=== PATIENT | male | born 1930 | race Caucasian/White ===

== ENCOUNTER 2018-03-28 11:40 | Inpatient (IN) ==
[2018-03-28] MEDS ORDERED: NS 1,000 ML IV ONE ×2 (11:52→12:44)
--- NOTE | 2018-03-28 12:14 | Diag Imaging Result Doc PS360 ---
CHEST-PORTABLE - 03/28/2018 INDICATION: stroke like symptoms COMPARISON: 07/25/2016 FINDINGS: There is slight accentuation of the ill-defined interstitial infiltrates or opacities in the lung bases bilaterally. This is worse on the right than the left side. Heart size is top normal. No pneumothorax or pleural effusion. There is COPD. IMPRESSION: Slight worsening in nonspecific increased markings in the lung bases, compatible with bronchitis, edema or fibrosis. Electronically signed by Bert Martinez 03/28/2018 12:12 PM
--- NOTE | 2018-03-28 12:22 | EKG Report ---
Test Performed on : 03/28/2018 11:46:51 AM Test Reason : Stroke like symptoms Blood Pressure : / mmHG Vent. Rate : 089 BPM Atrial Rate : 089 BPM P-R Int : 240 ms QRS Dur : 144 ms QT Int : 372 ms P-R-T Axes : 069 110 001 degrees QTc Int : 452 ms Sinus rhythm. with 1st degree AV block. Right bundle branch block T wave abnormality, consider inferior ischemia Abnormal ECG When compared with ECG of 21-AUG-2017 09:11, premature supraventricular complexes. are no longer present Vent. rate has increased BY 31 BPM Right bundle branch block has replaced Incomplete right bundle branch block Unconfirmed Result
--- NOTE | 2018-03-28 12:24 | Diag Imaging Result Doc PS360 ---
EXAM: CT HEAD W/O CONTRAST 03/28/2018 HISTORY: stroke like symptoms TECHNIQUE: This exam was performed using automated exposure control, adjustment of mA or kV according to patient size, and/or use of iterative reconstruction technique. COMMENT: There are calcifications in the left vertebral and both internal carotid arteries. There is moderate generalized cerebral atrophy. There has been previous craniotomy bilaterally in the frontal and parietal bones. No previous studies are available for comparison. Bilateral subdural fluid collections are present. These are fairly dense compared to CSF measuring over 20 Hounsfield units bilaterally. In addition there are some foci of hyperdensity as seen on image 39 on the left, adjacent to the temporal lobe on the left on image 16 and the frontal lobe on image 21 on the left which may indicate acute bleeding. The visualized paranasal sinuses are clear. There is no evidence of mass effect or hydrocephalus. IMPRESSION: Bilateral chronic subdural hematomata with some evidence of active or recent bleeding on the left. The findings were discussed with Jorge Alberto Willingham MD at 03/28/2018 12:21 PM. Electronically signed by Zurdo Peter 03/28/2018 12:21 PM
[2018-03-28 12:40] LABS: BASO# 0.02 X1000 (0.0-0.2); BASO% 0.2 % (0.0-0.8); HEMATOCRIT 42.3 % (42.0-52.0); HEMOGLOBIN 13.8 g/dL (14.0-18.0); IMM GRAN# 0.02 X1000 (0.0-0.04); IMM GRAN% 0.2 % (0.0-0.5); LYMPH% 7.8 % (20.5-51.1); MCH 32.1 PG (27-31); MCHC 32.6 g/dL (33-37); MCV 98.4 FL (81-99); MONO# 1.15 X1000 (0.11-0.59); MONO% 9.9 % (1.7-9.3); MPV 9.3 FL (7.4-10.4); NEUT# 9.51 X1000 (1.4-6.5); NEUT% 81.9 % (42.2-75.2); PLT 234 X1000 (130-400); RDW 13.4 % (11.5-14.5)
[2018-03-28 13:08] LABS: INR 1.03; PROTIME 14.3 Seconds (11.0-16.0)
[2018-03-28 13:09] LABS: AGAP 13; ALB/GLOB RATIO 1.4; ALBUMIN 4.5 g/dL (3.5-5.0); ALKALINE PHOSPHATASE 94 U/L (32-122); BUN 22 mg/dL (8-22); CHLORIDE 105 mmol/L (98-107); COSMO 293; ESTIMATED GFR > 60; GLUCOSE 157 mg/dL (70-104); GOT 28 U/L (10-34); GPT 25 U/L (10-44); PTT 27.8 Seconds (22.3-41.8); SODIUM 144 mmol/L (136-145); TCO2 26 mmol/L (25-35); TOTAL BILIRUBIN 1.29 mg/dL (0.20-1.00); TOTAL PROTEIN 7.7 g/dL (6.3-8.3)
--- NOTE | 2018-03-28 13:45 | PROVIDER DOCUMENTATION ---
This chart was entered by Merari Coy Scribe, acting as scribe for Jorge Alberto Willingham MD. HPI-Neurological Disorder - General Chief Complaint: Altered Mental Status Stated Complaint: ams Time Seen by Provider: 03/28/18 11:43 Source: patient, EMS (first response) Unable to obtain history due to:: altered Allergies/Adverse Reactions: Patient Allergies Allergy/AdvReac Type Severity Reaction Status Date / Time No Known Allergies Allergy Verified 05/04/15 10:00 Home Medications: Home Medication List Medication Instructions Recorded Confirmed Last Taken Type Albuterol [Albuterol Neb] 2.5 mg INH Q4H PRN PRN 08/21/17 08/21/17 08/16/17 09: 00 History Docusate Sodium [Colace] 100 mg PO BID #30 capsule 08/23/17 Unknown Rx Hydrocodone/Acetaminophen [[place] 1 each PO Q6H PRN PRN #12 tablet 08/23/17 Unknown Rx 7.5-325 Tablet] Ondansetron HCl [Zofran] 4 mg PO Q6H PRN PRN #5 tablet 08/23/17 Unknown Rx - History of Present Illness-Neuro Nature of Presenting Problem: 87 yowm presents to the ed via ems (first response) with cc AMS. pt was found this am unresponsive by family and 911 was called. pt on exam is still confused and is A/Ox2 but can follow simple commands. pt easily falls asleep without stimulation but can be woke with voice. Severity: reports: moderate Onset/Duration: reports: unsure Timing: reports: still present Context: reports: found unresponsive by family, head injury (abrasion to rt lateral brow) Character of Altered Mental Status: reports: disoriented, confused, unresponsive Any recent trauma/injury?: reports: other (unsure pt speaks of falling from bed but unsure when) Character of Deficits: reports: new weakness New weakness or altered sensation location:: reports: LLE Cognitive Baseline: alert but confused Gait Baseline: other (unsure) Associated Symptoms: reports: confusion, loss of consciousness, sleepy. denies : headache, slurred speech, vomiting, vision changes Review of Systems - Adult - REVIEW OF SYSTEMS - ADULT ROS:: unobtainable per condition Constitutional: denies: chills, fever Eyes: reports: no symptoms reported Ears, Nose, Mouth & Throat: reports: no symptoms reported Cardiovascular: denies: chest pain, palpitations Respiratory: denies: shortness of breath, wheezing Gastrointestinal: reports: poor appetite. denies: abdominal pain, diarrhea, nausea, vomiting Genitourinary: reports: no symptoms reported Musculoskeletal: reports: no symptoms reported Integumentary: reports: no symptoms reported Neurological: reports: see HPI, tremors. denies: ataxia, dizziness/vertigo, headache/migraines, slurred speech Psychiatric: reports: no symptoms reported Endocrine: reports: no symptoms reported Hematologic/Lymphatic: reports: no symptoms reported Allergic/Immunologic: reports: no symptoms reported All Other Systems: Reviewed and Negative Past History - Adult - PAST MEDICAL HISTORY-ADULT Review of Records: reports: Old Records Reviewed, Nursing Assessment Review, Medications Reviewed, Social history reviewed & non-contributory. Major Childhood Illnesses: reports: denies history Cardiovascular: reports: HTN Respiratory: reports: denies history Gastrointestinal: reports: GERD Genitourinary: reports: denies history Musculoskeletal: reports: denies history Neurological: reports: CVA Endocrine/Immune: reports: denies history Other Conditions: reports: denies history - IMMUNIZATION STATUS Childhood Immunizations: See Nurse Assessment Flu Vaccine: See Nurse Assessment - FAMILY HISTORY Family History: reviewed, not pertinent - SOCIAL HISTORY Living Situation: family Physical Exam- Neurological - Physical Exam-Neuro Initial Vital Signs Reviewed: Yes General Appearance: no apparent distress, lethargic, slow to respond Eye Exam: bilateral eye: normal inspection, PERRL HENMT: negative: moist mucous membranes Head Injury: no evidence of injury, other (old scars in head from past sx) Neck: normal inspection Respiratory: chest non-tender, rhonchi (bilateral) Cardiovascular: normal peripheral pulses, regular rate, rhythm Abdominal Exam: normal bowel sounds, non tender, soft Lymphatic: no adenopathy Motor/Sensory: pronator drift (L) (LLE), sensory deficit (1 off for extention) Neurologic: other (flattening of left nasal fold). negative: aphasia Integumentary: warm/dry, abrasion(s) (rt lateral brow), pallor. negative: normal turgor Psych/Mental Status: other (A/Ox2 palce and person). negative: oriented x 3 - Glascow Coma Scale Best Eye Response: (3) open to voice Best Verbal Response: (4) confused conversation Best Motor Response: (6) obeys commands Total Glascow Score: 13 Progress - PLAN OF CARE/RESULTS Progress/Plan/Lab Results: Vital Signs - 8 hr 03/28/18 13:01 Pulse Rate 79 Respiratory Rate 16 Blood Pressure 150/80 O2 Sat by Pulse Oximetry 98 Laboratory Results - last 24 hr 03/28/18 03/28/18 03/28/18 12:21 12:21 12:21 WBC 11.60 H RBC 4.30 L Hgb 13.8 L Hct 42.3 MCV 98.4 MCH 32.1 H MCHC 32.6 L RDW Std Deviation 13.4 Plt Count 234 MPV 9.3 Immature Gran % (Auto) 0.2 Neut % (Auto) 81.9 H Lymph % (Auto) 7.8 L Blackford % (Auto) 9.9 H Eos % (Auto) 0.0 Baso % (Auto) 0.2 Immature Gran # (Auto) 0.02 Neut # (Auto) 9.51 H Lymph # (Auto) 0.90 L Blackford # (Auto) 1.15 H Eos # (Auto) 0.00 Baso # (Auto) 0.02 PT 14.3 INR 1.03 PTT (Actin FS) 27.8 Sodium 144 Potassium 4.0 Chloride 105 Carbon Dioxide 26 Anion Gap 13 BUN 22 Creatinine 1.0 Estimated GFR/1.73 m2 > 60 BUN/Creatinine Ratio 22 Glucose 157 H POC Glucose Calculated Osmolality 293 Calcium 10.0 Total Bilirubin 1.29 H AST 28 ALT 25 Alkaline Phosphatase 94 Troponin T Total Protein 7.7 Albumin 4.5 Globulin 3.2 Albumin/Globulin Ratio 1.4 03/28/18 03/28/18 12:21 12:46 WBC RBC Hgb Hct MCV MCH MCHC RDW Std Deviation Plt Count MPV Immature Gran % (Auto) Neut % (Auto) Lymph % (Auto) Blackford % (Auto) Eos % (Auto) Baso % (Auto) Immature Gran # (Auto) Neut # (Auto) Lymph # (Auto) Blackford # (Auto) Eos # (Auto) Baso # (Auto) PT INR PTT (Actin FS) Sodium Potassium Chloride Carbon Dioxide Anion Gap BUN Creatinine Estimated GFR/1.73 m2 BUN/Creatinine Ratio Glucose POC Glucose 140 H Calculated Osmolality Calcium Total Bilirubin AST ALT Alkaline Phosphatase Troponin T < 0.010 Total Protein Albumin Globulin Albumin/Globulin Ratio Orders Category Date Time Status Cardiac Monitoring DIRECTED Care 03/28/18 11:51 Active Finger Stick Blood Sugar (ED) DIRECTED Care 03/28/18 11:51 Active Oxygen Therapy- ED Nursing DIRECTED Care 03/28/18 11:51 Active Saline Loc NOW Care 03/28/18 11:51 Active CHEST-PORTABLE [RAD] Stat Exams 03/28/18 11:[address] HEAD W/O CONTRAST [CT] Stat Exams 03/28/18 11:51 Completed CBC WITH ELECTRONIC DIFF [HEME] Stat Lab 03/28/18 12:21 Completed COMPREHENSIVE METABOLIC PANEL [CHEM] Stat Lab 03/28/18 12:21 Completed PROTIME WITH INR [COAG] Stat Lab 03/28/18 12:21 Completed PTT [COAG] Stat Lab 03/28/18 12:21 Completed TROPONIN T Stat Lab 03/28/18 12:21 Completed URINALYSIS W/POSS RFLX CULT [URINALYSIS] Stat Lab 03/28/18 11:51 Uncollected 0.9% Sodium Chloride Inj [Ns] 1,000 ml Med 03/28/18 12:44 Active IV 75 mls/hr 0.9% Sodium Chloride Inj [Ns] 1,000 ml Med 03/28/18 11:52 Discontinued IV 999 mls/hr EKG [EKG] Stat Ther 03/28/18 11:51 Draft TPA is contraindicated due to being a possible wake up stroke. pt was found by family this am unresponsive and called 911. pt became awake with ems and is A/O x2 lethargic and easily goes back to sleep if not stimulated Result Diagrams: 03/28/18 12:21 03/28/18 12:21 - REASSESSMENT Reassessment #1 Time Reassessed: 12:19 (dr willingham at bedside) Status: unchanged Reassessment Comment: family at bedside Reassessment #2 Time Reassessed: 12:43 Status: unchanged (Family at bedside (two sons) who say patient is DNR, and would not want to have brain surgery to remove SDH if bleeding got worse. In that case, we will not transfer to [facility] and plan to admit here.) Reassessment #3 Time Reassessed: 13:28 Status: unchanged (Given IVF only. Patient is somnolent, rouses to voice/ stimulation) - EKG 1 Time of EKG reading by physician:: 11:55 EKG Read and Signed by:: Jorge Alberto Willingham EKG Interpretation (*Must complete 3 of following elements*): Abnormal Rate: 89 Rhythm: sinus rhythm with 1st degree AV block [place]: normal QRS: RBB ND Interval: normal Comments: T wave abnormality, consider inferior ischemia - XRAY 1 XRAY: Bilateral XRAY Study: Chest (CHEST-PORTABLE - 03/28/2018 INDICATION: stroke like symptoms COMPARISON: 07/25/2016 FINDINGS: There is slight accentuation of the ill-defined interstitial infiltrates or opacities in the lung bases bilaterally. This is worse on the right than the left side. Heart size is top normal. No pneumothorax or pleural effusion. There is COPD. IMPRESSION: Slight worsening in nonspecific increased markings in the lung bases, compatible with bronchitis, edema or fibrosis. Electronically signed by Bert Martinez 03/28/2018 12:12 PM 03/28/18 1212 Interpreting Physician: Bert Martinez MD Dictated Date/Time: 03/28/18 1210 cc: Jorge Alberto Willingham MD;) - CT/MRI 1 CT Study: Head (EXAM: CT HEAD W/O CONTRAST 03/28/2018 HISTORY: stroke like symptoms TECHNIQUE: This exam was performed using automated exposure control, adjustment of mA or kV according to patient size, and/or use of iterative reconstruction technique. COMMENT: There are calcifications in the left vertebral and both internal carotid arteries. There is moderate generalized cerebral atrophy. There has been previous craniotomy bilaterally in the frontal and parietal bones. No previous studies are available for comparison. Bilateral subdural fluid collections are present. These are fairly dense compared to CSF measuring over 20 Hounsfield units bilaterally. In addition there are some foci of hyperdensity as seen on image 39 on the left, adjacent to the temporal lobe on the left on image 16 and the frontal lobe on image 21 on the left which may indicate acute bleeding. The visualized paranasal sinuses are clear. There is no evidence of mass effect or hydrocephalus. IMPRESSION: Bilateral chronic subdural hematomata with some evidence of active or recent bleeding on the left. The findings were discussed with Jorge Alberto Willingham MD at 03/28/2018 12:21 PM. Electronically signed by Zurdo Peter 03/28/2018 12:21 PM 03/28/18 1221 Interpreting Physician: Zurdo Peter MD Dictated Date/Time: 1216 cc: Jorge Alberto Willingham MD;) - CONSULTS/PCP/HOSPITALIST Notification #1 *Consult/PCP/Hospitalist*: spoke with radiologist Time Discussed: 12:21 Reason/Comments: head ct Consult Disposition: other (phone consult) #2 Consult: JOVANNY Farley, paged at 1325 Time Discussed: 13:44 (Admit to [facility]) Consult Disposition: Will see in ED Departure - Departure Date of Disposition Decision: 03/28/18 Time of Disposition Decision: 13:27 DIAGNOSIS: Subdural hematoma, post-traumatic Qualifiers: Encounter type: initial encounter Loss of consciousness presence/duration: with LOC of unspecified duration Qualified Code(s): S06.5X9A - Traumatic subdural hemorrhage with loss of consciousness of unspecified duration, initial encounter Altered mental status, unspecified Qualifiers: Altered mental status type: somnolence Qualified Code(s): R40.0 - Somnolence Fall as cause of accidental injury at home as place of occurrence Qualifiers: Encounter type: initial encounter Qualified Code(s): W19.XXXA - Unspecified fall, initial encounter; Y92.009 - Unspecified place in unspecified non- institutional (private) residence as the place of occurrence of the external cause Abrasion of right eyebrow Qualifiers: Encounter type: initial encounter Qualified Code(s): S00.211A - Abrasion of right eyelid and periocular area, initial encounter Disposition: ADMITTED INPATIENT 09 Certified Medical Emergency: Emergent Condition: Fair Referrals and Follow-Ups: Henry Jacob MD [Primary Care Provider] - - Critical Care Note This patient required my direct & personal management of CC.: Yes Total Time (mins): 39 Critical Care Statement: This patient required my direct personal management to treat or rule out processes, the absence of which, could potentiallly result in sudden, clinically significant life or limb threatening deterioration. Attestation - Physician/ CONCEPCIÓN Attestation Patient care was provided by Advanced Practice Provider:: No The physician spent face to face time with patient:: Yes Advanced Practice Provider documentation review:: Supervising physician onsite and consulted in the evaluation and care of this patient. The physician did have a face to face encounter with the patient. - NIH Stroke Scale NIH Type: Initial Evaluation Level of Consciousness: 1-Drowsy, but arousable with minimal stimulation LOC Questions (ask month and age): 1-Answers One Correctly LOC Commands (ask to open & close eyes;make a fist, let go): 0-Obeys Both Correctly Best Gaze (horizontal eye movement): 0-Normal Visual (use finger movement, counting or visual threat): 0-No Visual Loss Facial Palsy (show teeth or raise eyebrows & close eyes tght: 1-Minor Paralysis Motor Function-left arm: 0-Normal Motor Function-right arm: 0-Normal Motor Function-left le-Drift Motor Function-right le-Normal Limb Ataxia(yuhzap-alsi-wipomh, or heel to olsen): 0-No Ataxia Sensory(pin prick to face,arms,trunk,legs-compare side/side): 0-No Ataxia Best Language(name item/read sentence.Ex-Down to Earth): 0-No Aphasia Dysarthria(Pt read words or say words Ex.Mama,Tip-Top,Thanks: 0-Normal Articulation Extinction and Inattention: 1-Partial Neglect NIH Total Score: 4 Modified Bertrand Score Criteria: 4-moderately severe disability Stroke tPA Guidelines - Inclusion Criteria for IV tPA 18 years old or older: Yes Ischemic stroke with measurable deficit: No Onset <3 hours ago *OR* 3-4.5 hours ago: No - Exclusion Criteria for IV tPA Evidence of intracranial hemorrhage on CT: Yes This chart was documented by the indicated scribe, (Merari oCy Scribe) and accurately reflects the services I performed and decisions made by , Jorge Alberto Willingham MD, as attested by the provider's signature.
[2018-03-28] MEDS ORDERED: TYLENOL PO PRN (14:32)
[2018-03-28] MEDS ORDERED: ZOFRAN IV PRN (14:32)
[2018-03-28 16:05] LABS: URINE SOURCE CLEAN CATCH
[2018-03-28 16:26] LABS: BILIRUBIN URINE NEGATIVE (NEGATIVE); BLOOD URINE MODERATE (NEGATIVE); COLOR YELLOW; GLUCOSE URINE NEGATIVE (NEGATIVE); KETONE URINE 10 mg/dL (NEGATIVE); LEUKOCYTES URINE NEGATIVE (NEGATIVE); NITRITE URINE NEGATIVE (NEGATIVE); PH URINE 6.5; PROTEIN URINE 50 mg/dL (NEGATIVE); SP GRAVITY URINE 1.025; TURBIDITY URINE CLEAR (CLEAR); UR EPITHELIAL CELLS <10 /HPF (<10); URINE BACTERIA NEGATIVE /HPF; URINE RBC TNTC /HPF (<10); URINE WBC <10 /HPF (<10); UROBILINOGEN URINE NORMAL (NORMAL)
[2018-03-28] MEDS ORDERED: ALBUTEROL NEB INH PRN (16:33)
--- NOTE | 2018-03-28 17:42 | HISTORY AND PHYSICAL ---
PRIMARY CARE PROVIDER: Dr. Henry Jacob out of [place]. He also used to Dr. Juarez but does not see him anymore. CHIEF COMPLAINT: Fall with altered mentation. HISTORY OF PRESENT ILLNESS: Mr. Alonso Overton is an 87-year-old male with a medical history of having bilateral subdural hematomas around 8 years ago. He had craniotomy or parisa holes on both sides and had a complete recovery neurologically from that. Since September 2017, his and this has increased his depression. He has gotten worse with his balance and more significant tremors. Apparently, he had more slur in his speech yesterday and the fall was either last night or this morning. He lives at home alone. He does have a grandson that lives upstairs but is not there frequently and his son came to check on him at 9:30 this morning. He was sitting on the side of the bed but he was not getting up and continued to have slurred words and above the right eyebrow was an abrasion, so they brought him here. Head CT reveals that he has evidence of active or recent bleeding on the left despite having an abrasion on the right. The family wishes to stay here as the patient has adamantly told his family he wants to be a do not resuscitate level 1, and so we will follow his wishes, we will admit to the medical floor. He is now following all commands, believe he was a little bit weaker on his left leg, but now strength in all extremities is equal. Speech is a little bit more clear according to the family. He is oriented to his name only. PAST MEDICAL HISTORY: 1. BPH. 2. Tinea cruris. 3. Mild cognitive impairment. 4. Eight years ago bilateral subdural hematomas with craniotomy versus parisa holes. 5. Depression. 6. Chronic dry eyes. 7. 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 SURGICAL HISTORY: 1. Bilateral subdural hematoma evacuations either by parisa holes or craniotomy, he still has indentions bilaterally on the top of his head. 2. Inguinal hernia repair on the right and on the left. SOCIAL HISTORY: Currently living in [place], he is since September 2017, he has 3 adult children. He denies tobacco, alcohol, or illicit drug use. He also has a PhD in psychology. FAMILY HISTORY: Both of his parents from pneumonia complications and his father had a stroke. ALLERGIES: No known drug allergies. HOME MEDICATIONS: He only has albuterol listed. REVIEW OF SYSTEMS: A 14-point review of systems was completed and all are negative except as mentioned above and in HPI. He states he has no pain at all right now. He does complain of some numbness in his feet. PHYSICAL EXAMINATION: VITAL SIGNS: Temperature not recorded. Heart rate 73. Respiratory rate 12. Blood pressure 148/77. O2 saturation 96% on room air. GENERAL: Mr. Alonso Overton is an 87-year-old male. He is in no acute distress. He is able to answer some questions appropriately. He is still mildly confused with a mild dysarthria. HEENT: Atraumatic. It looks like there might be a mild, slight right facial droop. Pupils are equal and reactive. Extraocular movements were intact. Mucous membranes are dry. NECK: Trachea midline. CARDIOVASCULAR: S1, S2, regular rate and rhythm. No rubs, gallops, or murmurs. No lower extremity edema. +2 dorsalis and radial pulses. Negative for JVD or carotid bruits. PULMONARY: Clear to auscultation with bilateral breath sounds. No accessory muscle use or work of breathing noted. GASTROINTESTINAL: Soft, nontender, nondistended. Positive bowel sounds x4. EXTREMITIES: Moves all extremities equally with full range of motion. NEUROLOGICAL: A and O to name, confused with place and year. Decreased sensory in the feet. Follows all commands. SKIN: Warm, dry, and intact except for small abrasion over the right eyebrow. LABORATORY DATA: White blood cells 11,000, hemoglobin 13, hematocrit 42, platelet count 234. INR 1.03. PTT 27.8. Sodium 144, potassium 4, BUN 22, creatinine 1, glucose 157, calcium 10, bilirubin 1.29, AST 28, ALT 25. Troponin less than 0.01. Albumin 4.5. Urinalysis: 50 protein, 10 ketones, moderate blood, too numerous to count red blood cells. IMAGING: Chest x-ray: Bilateral lung bases could have bronchitis, edema, or fibrosis, but he is not showing any signs. Head CT shows bilateral chronic subdural hematoma with some evidence of active or recent bleeding on the left. EKG: Sinus rhythm with a first-degree heart block, heart rate 89, QTC 452. ASSESSMENT AND PLAN: 1. Fall with new left subdural hematoma that is small. He seems to already be returning to his baseline. He is a little bit mildly confused. He has been having more tremors and balance problems. He denies any other symptoms such as dizziness or lightheadedness. He is a do not resuscitate and does not wish to have any type of surgical procedure, so they are okay with staying here at [facility]. He is currently stable and will transfer to the medical floor. 2. 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 3. Possible bibasilar pneumonia. White count is up a little bit. There is no lactate. We will go ahead and do Levaquin for that. No respiratory complaints at all. 4. Deep venous thrombosis prophylaxis. Dictated by JOVANNY Varghese for Uriel Donaldson MD Addendum: Patient seen and examined by myself. Agree with JOVANNY note. It reflects my assessment and plan. Patient is being admitted to hospital for a subdural hematoma secondary to fall. It is unfortunately not the first time this patient has this problem. Will admit patient in the hospital considering patient is DNR and if he get worse and requires further surgical care he was very clear he will not get it. We also found out he has a bibasilar pneumonia that will treat with Levaquin. Will monitor patient closely. cc: JOVANNY Varghese MD [facility]
[2018-03-28] MEDS: LEVAQUIN 500 MG/D5W 500 MG/100 ML IVPB IV SCH (18:56)
[2018-03-29 07:18] LABS: BASO# 0.04 X1000 (0.0-0.2); BASO% 0.4 % (0.0-0.8); EOS# 0.28 X1000 (0.0-0.7); HEMATOCRIT 37.9 % (42.0-52.0); HEMOGLOBIN 12.2 g/dL (14.0-18.0); IMM GRAN# 0.02 X1000 (0.0-0.04); IMM GRAN% 0.2 % (0.0-0.5); LYMPH# 1.96 X1000 (1.2-3.4); LYMPH% 21.1 % (20.5-51.1); MCH 32.1 PG (27-31); MCHC 32.2 g/dL (33-37); MCV 99.7 FL (81-99); MONO# 1.37 X1000 (0.11-0.59); MONO% 14.7 % (1.7-9.3); MPV 9.5 FL (7.4-10.4); NEUT# 5.63 X1000 (1.4-6.5); NEUT% 60.6 % (42.2-75.2); PLT 204 X1000 (130-400); RDW 13.5 % (11.5-14.5)
[2018-03-29 07:41] LABS: AGAP 8; ALB/GLOB RATIO 1.3; ALBUMIN 3.6 g/dL (3.5-5.0); ALKALINE PHOSPHATASE 71 U/L (32-122); BUN 19 mg/dL (8-22); CALCIUM 9.1 mg/dL (8.8-10.2); CHLORIDE 108 mmol/L (98-107); COSMO 285; CREATININE 0.9 mg/dL (0.7-1.2); ESTIMATED GFR > 60; GLUCOSE 100 mg/dL (70-104); GOT 24 U/L (10-34); GPT 19 U/L (10-44); MAGNESIUM 1.8 mg/dL (1.5-2.7); POTASSIUM 4.2 mmol/L (3.5-5.1); SODIUM 142 mmol/L (136-145); TCO2 26 mmol/L (25-35); TOTAL BILIRUBIN 1.75 mg/dL (0.20-1.00); TOTAL PROTEIN 6.4 g/dL (6.3-8.3)
[2018-03-29 07:43] LABS: INR 1.18; PROTIME 15.9 Seconds (11.0-16.0)
[2018-03-29 07:46] LABS: PTT 31.7 Seconds (22.3-41.8)
--- NOTE | 2018-03-29 13:51 | PROGRESS NOTE ---
DATE: 03/29/2018 SUBJECTIVE: The patient reports feeling fine. Denies any headache, any nausea or vomiting. He has good speech. He is about to start working with physical therapy. OBJECTIVE: Vital Signs: Temperature 98.4 degrees, heart rate 57, respiratory rate 20, blood pressure 137/71, O2 saturation 100% on room air. General Examination: This is an 87-year-old male, lying in bed, in no acute distress. HEENT: Head is normocephalic, atraumatic. Mucous membranes dry. No facial droop noted. Neck: No JVD noted. No carotid bruits. No lymphadenopathy. Cardiovascular: S1, S2 heard. No murmurs, gallops, or rubs. Regular rate and rhythm. Respiratory: Clear bilaterally to auscultation. No work of breathing or using accessory muscles. Abdomen: Soft, nontender to palpation. Nondistended. Bowel sounds present. No organomegaly. Extremities: No clubbing, cyanosis, or edema. Peripheral pulses present in both legs. Neurological: Patient alert and oriented x3. Moves 4 extremities. Gait not assessed. LABORATORY DATA: Reviewed. ASSESSMENT AND PLAN: 1. Fall with new subdural hematoma. The subdural hematoma is small. Actually, the patient is definitely more awake and alert. The son is at bedside too. The patient is about to start working with physical therapy. At this point, considering that he is improving, I will plan to keep this patient 24 more hours and see how he does, and if he is doing like today with no symptoms at all, I think we can discharge this patient. 2. Bibasilar pneumonia. This is a finding that we noticed in the x-ray. White cell count is a little bit what is a little bit yesterday but back to normal today. We have started him on Levaquin. We will continue with the same management. 3. DVT prophylaxis. We will continue with Lovenox. 4. Disposition. We will continue to monitor this patient closely. cc: Uriel Donaldson MD
[2018-03-29] MEDS: LEVAQUIN 500 MG/D5W 500 MG/100 ML IVPB IV SCH (17:52)
--- NOTE | 2018-03-30 17:02 | PROGRESS NOTE ---
DATE: 03/30/2018 SUBJECTIVE: Patient is fine this morning. No complaints. Family at bedside. No complaints noted. OBJECTIVE: Vital Signs: Temperature 97.8, heart rate 57, respiratory rate 17, blood pressure 157/78, O2 sat 100% on room air. General: This is an 87-year-old male lying in bed in no acute distress. Cardiovascular: S1, S2 heard. No murmurs, gallops or rubs. Regular rate and rhythm. Respiratory: Clear bilaterally to auscultation. No work of breathing or using accessory muscles. Abdomen: Soft, nontender to palpation. Bowel sounds present. No organomegaly. Extremities: No clubbing, cyanosis or edema. Peripheral pulses present in both legs. Neurologic: Patient alert oriented x 3. Moves 4 extremities. LABORATORY DATA: Reviewed. ASSESSMENT AND PLAN: 1. Small left new subdural hematoma. The subdural hematoma at admission was small in the left side. Clinically, he is alert and awake. Actually, is a little bit more awake than admission. Plan is to check another CT on Sunday and see if this hematoma has enlarged or not. Clinically, he is doing good. Even in the case that the patient started to get worse, the patient was very clear that he does not want to have any surgical treatment. I talked with son today and he wants the patient to be sent to rehab facility. I think it is reasonable. We will consult public health social worker. We will go from there. 2. Bibasilar pneumonia. Clinically, this patient is doing good. Not feeling any shortness of breath. Not requiring any oxygen supplementation. White cell count is okay, so we will continue with Levaquin. 3. Deep vein thrombosis prophylaxis. Patient on Lovenox. 4. Disposition: We will continue to monitor this patient closely. cc: Uriel Donaldson MD [facility]
[2018-03-30] MEDS: LEVAQUIN 500 MG/D5W 500 MG/100 ML IVPB IV SCH (18:00)
--- NOTE | 2018-03-31 11:21 | PROGRESS NOTE ---
DATE: 03/31/2018 SUBJECTIVE: Patient according to son who is at bedside, is apparently complaining of more headache, though changed to his forehead and definitely sleepier this morning to my examination. OBJECTIVE: Vital Signs: Temperature 96 degrees, heart rate 57, respiratory rate 18, blood pressure 142/77, O2 saturation 98% on room air. General: This is an 87-year-old male, lying in bed, in no acute distress. HEENT: Head is normocephalic, atraumatic, two scars from old surgeries. Neck: No JVD noted. No carotid bruit. Cardiovascular: S1, S2 heard. No murmurs, gallops, or rubs. Regular rate and rhythm. Respiratory: Clear bilaterally to auscultation. No work of breathing or using accessory muscles. Abdomen: Soft, nontender to palpation. Bowel sounds present. No organomegaly. Extremities: No clubbing, cyanosis, or edema. Peripheral pulses present in both legs. Neurological: Patient is sleepier and a little obtunded. Not oriented. Moves 4 extremities spontaneously. LABORATORY DATA: There is no laboratories from today. ASSESSMENT AND PLAN: 1. Small left new subdural hematoma. Apparently, his clinical situation is getting worse with compromise of mental status. Considering this recent left subdural hematoma, I will definitely order a CT of the head without contrast and see how this patient is doing. It is important to remark though that this patient when he was awake, at admission he was very clear in case he required surgery, he does not want to have any surgical procedure or anything that will prolong his life. At this point, we will be waiting for results of CAT scan and I will inform relatives immediately. 2. Bibasilar pneumonia. The patient is not requiring any oxygen supplementation. The patient is on Levaquin. We will continue with the same management. 3. Deep vein thrombosis prophylaxis. Patient is not on any Lovenox because of this subdural hematoma. He is also not on SCDs. 4. Disposition. Depending upon the results of the CT scan of the head, but patient is Do Not Resuscitate level. cc: Uriel Donaldson MD
--- NOTE | 2018-03-31 12:21 | Diag Imaging Result Doc PS360 ---
EXAM: CT HEAD W/O CONTRAST INDICATION: worsening subdural hematoma TECHNIQUE: This exam was performed using automated exposure control, adjustment of mA or kV according to patient size, and/or use of iterative reconstruction technique. COMPARISON: 03/28/2018 FINDINGS: There are bilateral chronic subdural hematomas that are essentially stable as compared to the recent previous study. No interval bleeding is appreciated. There is no definite acute infarct given the limited sensitivity of CT versus MRI. There is no hydrocephalus. Surrounding soft tissues and bony structures are stable. IMPRESSION: Stable chronic bilateral subdural hematomas with no evidence of significant interval bleeding. Electronically signed by Edilberto Baker 03/31/2018 12:19 PM
[2018-03-31 13:47] LABS: BASO# 0.04 X1000 (0.0-0.2); BASO% 0.4 % (0.0-0.8); EOS# 0.34 X1000 (0.0-0.7); EOS% 3.1 % (0.0-10.0); HEMATOCRIT 42.6 % (42.0-52.0); HEMOGLOBIN 14.1 g/dL (14.0-18.0); IMM GRAN# 0.02 X1000 (0.0-0.04); IMM GRAN% 0.2 % (0.0-0.5); LYMPH# 2.07 X1000 (1.2-3.4); LYMPH% 18.8 % (20.5-51.1); MCH 32.3 PG (27-31); MCHC 33.1 g/dL (33-37); MCV 97.7 FL (81-99); MONO# 1.62 X1000 (0.11-0.59); MONO% 14.7 % (1.7-9.3); MPV 9.4 FL (7.4-10.4); NEUT# 6.92 X1000 (1.4-6.5); NEUT% 62.8 % (42.2-75.2); PLT 217 X1000 (130-400); RBC 4.36 XMIL (4.7-6.1); RDW 12.8 % (11.5-14.5); WBC 11.01 X1000 (4.8-10.8)
[2018-03-31 14:10] LABS: AGAP 13; BUN 15 mg/dL (8-22); CALCIUM 9.3 mg/dL (8.8-10.2); CHLORIDE 99 mmol/L (98-107); COSMO 273; CREATININE 0.8 mg/dL (0.7-1.2); ESTIMATED GFR > 60; GLUCOSE 98 mg/dL (70-104); POTASSIUM 3.9 mmol/L (3.5-5.1); SODIUM 136 mmol/L (136-145); TCO2 24 mmol/L (25-35)
[2018-03-31] MEDS: LEVAQUIN 500 MG/D5W 500 MG/100 ML IVPB IV SCH (16:35)
[2018-04-01 07:10] LABS: BASO# 0.02 X1000 (0.0-0.2); BASO% 0.2 % (0.0-0.8); EOS# 0.21 X1000 (0.0-0.7); EOS% 2.3 % (0.0-10.0); HEMATOCRIT 38.3 % (42.0-52.0); HEMOGLOBIN 12.9 g/dL (14.0-18.0); IMM GRAN# 0.03 X1000 (0.0-0.04); IMM GRAN% 0.3 % (0.0-0.5); LYMPH# 1.82 X1000 (1.2-3.4); LYMPH% 20.3 % (20.5-51.1); MCH 32.7 PG (27-31); MCHC 33.7 g/dL (33-37); MONO# 1.43 X1000 (0.11-0.59); MONO% 15.9 % (1.7-9.3); MPV 9.5 FL (7.4-10.4); NEUT# 5.47 X1000 (1.4-6.5); PLT 209 X1000 (130-400); RBC 3.95 XMIL (4.7-6.1); RDW 12.5 % (11.5-14.5); WBC 8.98 X1000 (4.8-10.8)
[2018-04-01 07:26] LABS: AGAP 11; BUN 17 mg/dL (8-22); CALCIUM 9.2 mg/dL (8.8-10.2); CHLORIDE 100 mmol/L (98-107); COSMO 274; CREATININE 0.9 mg/dL (0.7-1.2); ESTIMATED GFR > 60; GLUCOSE 105 mg/dL (70-104); POTASSIUM 3.8 mmol/L (3.5-5.1); SODIUM 136 mmol/L (136-145); TCO2 25 mmol/L (25-35)
--- NOTE | 2018-04-01 12:08 | PROGRESS NOTE ---
DATE: 04/01/2018 SUBJECTIVE: Patient is sleeping now. But according to the 2 sons, who were at bedside, he was able to talk to them. He is in a good mood. He does not have any cognitive decline. OBJECTIVE: Vital Signs: Temperature 97.2 degrees, heart rate 72, respiratory rate 19, blood pressure 145/76. O2 saturation 98% on room air. General: This is an 87-year-old male, lying in bed, in no acute distress. Cardiovascular: S1, S2 heard. No murmurs, gallops, or rubs. Regular rate and rhythm. Respiratory: Clear bilaterally to auscultation. No work of breathing or using accessory muscles. Abdomen: Soft, nontender to palpation. Bowel sounds present. No organomegaly. Extremities: No clubbing, cyanosis, or edema. Peripheral pulses present in both legs. Neurological: Patient is sleepy now, but awakes easily to verbal stimuli. Patient had an intentional tremor noted. Moves 4 extremities spontaneously. LABORATORY DATA: CBC unremarkable. BMP as well. ASSESSMENT AND PLAN: 1. Small left new subdural hematoma. His baseline situation is the same in comparing with admission, able to talk with good and coherent speech. Family reports some facial drooping. Also, there are really concerned about his intentional tremor that apparently is present for a few months. They request, if possible, to have a Neurology consultation, and I think it is reasonable. At this point in time, we will continue with physical therapy for this patient, and will follow recommendations from Neurology. 2. Bibasilar pneumonia. Patient is doing good from that standpoint. Not requiring any oxygen supplementation. Patient is on Levaquin. Will continue with same management. 3. Deep vein thrombosis prophylaxis. The patient on sequential compression devices. 4. Disposition. We will continue to monitor this patient closely. The long-term plan is to send her to rehab whenever we get a bed. cc: Uriel Donaldson MD
[2018-04-01] MEDS: LEVAQUIN 500 MG/D5W 500 MG/100 ML IVPB IV SCH (17:25)
[2018-04-02 07:35] LABS: BASO# 0.04 X1000 (0.0-0.2); BASO% 0.4 % (0.0-0.8); EOS# 0.32 X1000 (0.0-0.7); EOS% 3.5 % (0.0-10.0); HEMOGLOBIN 12.7 g/dL (14.0-18.0); IMM GRAN# 0.03 X1000 (0.0-0.04); IMM GRAN% 0.3 % (0.0-0.5); LYMPH# 2.07 X1000 (1.2-3.4); LYMPH% 22.5 % (20.5-51.1); MCH 33.2 PG (27-31); MCHC 34.3 g/dL (33-37); MCV 96.9 FL (81-99); MONO# 1.29 X1000 (0.11-0.59); MPV 9.4 FL (7.4-10.4); NEUT# 5.44 X1000 (1.4-6.5); NEUT% 59.3 % (42.2-75.2); PLT 212 X1000 (130-400); RBC 3.82 XMIL (4.7-6.1); RDW 12.5 % (11.5-14.5); WBC 9.19 X1000 (4.8-10.8)
[2018-04-02 07:56] LABS: AGAP 10; BUN 17 mg/dL (8-22); CALCIUM 9.2 mg/dL (8.8-10.2); CHLORIDE 100 mmol/L (98-107); COSMO 272; CREATININE 0.7 mg/dL (0.7-1.2); ESTIMATED GFR > 60; GLUCOSE 105 mg/dL (70-104); POTASSIUM 3.9 mmol/L (3.5-5.1); SODIUM 135 mmol/L (136-145); TCO2 25 mmol/L (25-35)
[2018-04-02 12:04] VITALS: BP 125/77
--- NOTE | 2018-04-02 14:19 | PROGRESS NOTE ---
DATE: 04/02/2018 SUBJECTIVE: This patient is resting comfortably in bed. He has been complaining of some headache, mostly in the forehead and left parietal area, which is on and off and low intensity. OBJECTIVE: He is alert. He is oriented x2. He knows he is in the hospital. He does not remember which one. He is oriented to person. He is able to recognize family members at the bedside. He is answering all of my questions basically. He moves all 4 extremities but he has generalized weakness. LABORATORY: WBC 9.1, hemoglobin 12.7, hematocrit 37, platelet 212,000. Sodium 135, potassium 3.9, chloride 100, bicarbonate 25, BUN 17, creatinine 0.7, glucose 105, calcium 9.2. ASSESSMENT AND PLAN: 1. Small left new subdural hematoma. His baseline situation apparently is about the same compared with admission. He is able to talk. He is making sense. Family members at the bedside. I do not see any facial weakness. He does have some tremors but I am not quite sure if this is new. It looks like it has been with him for months. Pending neurology evaluation. 2. Bibasilar pneumonia. He is not having any respiratory distress, shortness of breath, or cough. This patient is on Levaquin. Continue with the same treatment. 3. Deep vein thrombosis prophylaxis. Continue with SCDs. 4. Disposition. Hopefully this patient can be discharged to a rehab center tomorrow. I am waiting just for neurology's recommendations. cc: Eben Huff MD
--- NOTE | 2018-04-02 16:34 | DISCHARGE SUMMARY ---
ADMISSION DATE: 03/28/2018 DISCHARGE DATE: 04/02/2018 CONSULTATIONS: None. PERTINENT PROCEDURES: 1. Initial head CT: Bilateral chronic subdural hematoma with some evidence of active or recent bleeding on the left. 2. Follow-up head CT: Stable chronic bilateral subdural hematomas with no evidence of significant interval bleeding. DISCHARGE DIAGNOSES: 1. Small left new subdural hematoma. The patient does have bilateral chronic hematomas. He is at his baseline. The patient refused transfer to a higher level of care. Adamant about DNR LEVEL 1. He has been working with physical therapy and their recommendation is rehab. 2. Bibasilar pneumonia. He has been on IV antibiotics. He has not required any supplemental O2. He was transitioned to p.o. Levaquin. 3. Benign prostatic hypertrophy. 4. Depression. 5. Chronic dry eyes. 6. Mild cognitive impairment. HOSPITAL COURSE: Briefly, Mr. Overton is an 87-year-old male with a past medical history of bilateral subdural hematomas 8 years ago. He had a craniotomy or parisa holes on both sides and had a complete recovery neurologically. The patient's in 09/2017, and he had an increase in his depression. He reported worsening balance and more significant tremors. He had sustained a fall. It was unsure if it was the night prior the day of his admission with some reported slurred speech. Head CT in the ED showed evidence of active or recent bleeding on the left despite having an abrasion above his right eye. The patient and the family wanted to stay here at [facility]. The patient was adamant about being a DNR LEVEL 1. He was found to have a bibasilar pneumonia for which he was initiated on IV antibiotics. The patient is at his baseline mental status. Repeat head CT did not show any further bleeding. He has been transitioned to oral antibiotics and will be discharged to [facility] at the recommendation of physical therapy. VITAL SIGNS: Temperature is 97.7, heart rate 76, respirations 22, blood pressure 125/77, O2 is 98% on room air. DISCHARGE DIET: Mechanical soft. DISCHARGE MEDICATIONS: 1. Albuterol 2.5 mg inhaled q.4 hours p.r.n. 2. Latanoprost 7.5 mL ophthalmic HS. 3. Systane complete 10 mL ophthalmic daily p.r.n. 4. [place] palmetto 900 mg p.o. daily. 5. Tylenol 650 mg p.o. q.6 hours p.r.n. 6. Levaquin 500 mg p.o. daily x3 more doses. FOLLOW-UP: Mr. Overton is being discharged to [facility]. He has been a DNR LEVEL 1 while in our facility. He is to take all antibiotics as prescribed. He can return to the ED or call 911 for any worsening of symptoms. Discharge time, 35minutes Dictated by JOVANNY Solano for Eben Huff MD cc: MD Henry Carranza MD MTDD
--- NOTE | 2018-04-02 19:07 | CONSULTATION ---
DATE OF CONSULTATION: 04/02/2018 REASON FOR CONSULTATION: Tremor with question of Parkinson's disease. HISTORY OF PRESENT ILLNESS: This is an 87-year-old right-handed male with history of bilateral subdural hematomas eight years ago that was managed surgically. He had complete recovery from that. He also has reported mild cognitive impairment as well as depression. He was admitted on 03/28/2018 after he was found sitting on the side of the bed with an abrasion above his eyebrow on the right. He seemed a bit confused and possibly slurring his words some. A CT on admission reported bilateral chronic subdural hematomas with some evidence of active or recent bleeding on the left, which were quite small in nature. He was subsequently admitted. He has been treated for pneumonia and monitored clinically. He improved and remains stable during his stay. A repeat head CT on 03/31/2018 showed stable findings. There was no definite report of loss of consciousness or focal neurologic symptoms. He has had a mild bifrontal tightness/headache off and on during his stay. Family reports he has had tremor in his hands bilaterally for many years. Son reports this is long- standing. He has some issues with holding a cup and walking across the room with it. He also has some issues with using his utensils. He does not have tremor involving the head, voice, or lower extremities. In general, the tremor has remained relatively stable throughout many years. However, the patient lost his in September of last year and has had some significant difficulty with this. During this time, his tremor has seemed to be worse and he has been completely fixated on the loss of his . He has become significantly depressed. Two of his three sons have the same tremor to varying degrees involving their hands as well. PAST MEDICAL HISTORY: 1. Bilateral subdural hematomas managed surgically eight years ago. 2. Mild cognitive impairment. 3. Depression. 4. BPH. 5. Chronic dry eyes. 6. Some sort of chronic lung infection. SOCIAL HISTORY: He was in September 2017. He lives in [place]. He has three adult children. No tobacco, alcohol, or illicits. 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 FAMILY HISTORY: Father with a stroke. ALLERGIES: No known drug allergies. HOME MEDICATIONS: Include, Albuterol and I believe, saw palmetto. CURRENT MEDICATIONS: Also include, Levaquin. REVIEW OF SYSTEMS: Balance of 12 was conducted and is otherwise negative except that detailed in the HPI. PHYSICAL EXAMINATION: Vital Signs: Afebrile. Blood pressure 125/77, pulse 60s to 70s, respirations 22, 98% on room air. Mr. Overton is supine in bed with the head of bed elevated. He is awake and alert. He is in no acute distress. He is cooperative, spontaneous , attentive, and a few times seems to make a joke and laugh. He is oriented to self, location, family members at bedside. He states the month. He does not state the year, day of week, or the President's name. He follows simple commands consistently as well as a complex command. No language disturbance detected on bedside testing. No significant dysarthria. Pupils are equal, round and reactive to bright light. Gaze is conjugate and forward. Ocular movements are full. Visual juan intact. Face symmetric with equal activation. Tongue is midline. Palate elevates symmetrically. Full shoulder shrug. No drift. Tone is normal and symmetric in the limbs. There is no rigidity or cogwheeling. Strength is preserved in the arms and legs, as tested, and symmetric. At rest there is no tremor. Rest tremor is also not elicited with distraction. There is postural tremor easily apparent with the arms outstretched. There is a kinetic component as well and the tremor increases quite a bit at the end of goal directed movement, which is elicited by [id number] as well as with drinking from a cup. The tremor is bilateral, a bit worse on the right. There is no tremor noted elsewhere on the body. Rapid alternating movements are symmetric , a little bit slowed bilaterally. [id number] is accurate. I did not see dysmetria. Heel- to-olsen is symmetric, intact. He reports symmetric sensation to light touch in the arms and legs. Reflexes are trace biceps and knee jerks, absent ankle jerks. No clonus. Plantar response is downgoing bilaterally. I did not test his gait. DIAGNOSTIC DATA: Head CT on admission showed bilateral chronic subdural hematomas with some evidence of active or recent bleeding on the left. Repeat head CT on 2018 showed stable chronic bilateral subdural hematomas with no evidence of significant interval bleeding. Normal white count today. Sodium 135. BUN, creatinine, AST, and ALT are normal. Calcium is normal. ASSESSMENT: 1. Chronic bilateral subdural hematomas, status post surgical correction eight years ago, now with fall and possible very small acute blood in that area on the left. Clinical course in the hospital has been stable and repeat head CT also stable. 2. Long-standing tremor for many years, right greater than left hand. On exam this appears to be postural and kinetic in nature and features are most consistent with essential tremor. Familial patten is also consistent with essential tremor. I see no definite Parkinsonian signs at this time. 3. Major depression. This has been ongoing now for many months since the of his , which occurred in September of 2017. The patient does not wish to take medications for this. PLAN: 1. In the future, a trial of either low dose of propranolol or primidone could be attempted if so desired. I am not certain he is interested in taking medications for this at this time. I think it would be reasonable to wait anyway until he gets some resolution with his depressive symptoms, which seems to be a significant factor in his functional status at this time. 2. He seems to be stable from a neurologic standpoint at this time but should further issues arise he should be reevaluated. 3. We would be happy to see him in the clinic in the future if he would be interested in reevaluating the tremor and potentially starting a medication trial. Thank you for the consultation. cc: Lacey Conner MD MTDD
== END 2018-04-02 16:36 | DRG 85 ==
LOC: ED 11:40 → SUATTDRO 14:12 → EDIPHOLD 14:12 → 3N 17:32
PROVIDERS: ATTEND Internal Medicine
CPT/HCPCS: 70450; 71010; 71045; 80048; 80053; 81001; 82948; 83735; 84484; 85025; 85610; 85730; 87040; 93005; 96360; 96361; 97110; 97116; 97162; 97530; 99285; 99291; J1956; J7030; XXXXX